=== PATIENT | male | born 1970 | race African-American/Black ===

== ENCOUNTER 2021-02-07 17:50 | Inpatient (IN) | payer OTHER ==
[~2021-02-07] VITALS: Ht 185.4 cm; Wt 165.6 kg
[2021-02-07] MEDS ORDERED: METH2.5T PO (18:04)
[2021-02-07] MEDS ORDERED: CEFTRIAXONE 1 G PREMIX 50 ML IV ONE (18:45)
[2021-02-07] MEDS ORDERED: AZITHROMYCIN 500 MG in DEXT 5% WATER 250 ML IV ONE (18:45)
[2021-02-07 18:50] LABS: HEMATOCRIT. 38.6 % (42.0-52.0); HEMOGLOBIN. 12.7 g/dL (14.0-18.0); MEAN CORPUSCULAR HEMOGLOBIN 26.5 pg (28.0-32.0); MEAN CORPUSCULAR VOLUME 80.8 fL (80.0-94.0); MEAN PLATELET VOLUME 7.9 fl (7.4-10.4); PLATELET 292 x1000/uL (130-400); RED BLOOD CELL COUNT 4.78 mill/uL (4.7-6.1); RED CELL DISTRIBUTION WIDTH 16.1 % (11.6-14.6)
[2021-02-07 18:58] LABS: CHLORIDE 104 mEq/L (98-107)
[2021-02-07] MEDS ORDERED: SODIUM CHLORIDE 0.9% 1,000 ML IV ONE ×2 (19:30→19:45)
[2021-02-07 19:37] LABS: PLATELET ESTIMATE NORMAL
[2021-02-08] MEDS ORDERED: MAGNESIUM/ALUMINUM HYDROXIDE/SIMETHICONE 30ML UDC PO STA
[2021-02-08] MEDS ORDERED: IPRATROPIUM/ALBUTEROL 0.5-3(2.5)MG/3ML NEB HHN PRN (03:45)
[2021-02-08] MEDS: AMLODIPINE 10MG TABLET PO SCH (09:48)
[2021-02-08] MEDS ORDERED: HYDRALAZINE HCL 100MG TABLET PO NR (10:30)
[2021-02-08] MEDS ORDERED: ONDANSETRON HCL 4MG/2ML INJ IV PRN (10:30)
[2021-02-08] MEDS: SODIUM CHLORIDE 0.9% 1,000 ML IV SCH (10:47)
[2021-02-08 11:59] LABS: CLARITY URINE CLOUDY (CLEAR); COLOR URINE DK YELLOW (YELLOW); KETONES URINE NEGATIVE (NEGATIVE); LEUKOCYTE ESTERASE URINE NEGATIVE (NEGATIVE); NITRITE URINE NEGATIVE (NEGATIVE); OCCULT BLOOD URINE TRACE (NEGATIVE); PROTEIN URINE 3+ (NEGATIVE); SPECIFIC GRAVITY URINE 1.021 (1.005-1.030)
[2021-02-08] MEDS: CEFTRIAXONE 1,000 MG in DEXTROSE 5% WATER 50 ML IV SCH (12:37)
[2021-02-08] MEDS: ENOXAPARIN 40MG/0.4ML SYR SUBCUT SCH ×2 (12:37→20:58)
[2021-02-08 15:57] VITALS: BP 180/94
[2021-02-08 16:00] VITALS: BP 180/84
[2021-02-08] MEDS: CLONIDINE 0.1MG TABLET PO PRN (16:59)
[2021-02-08] MEDS: AZITHROMYCIN 500MG in DEXTROSE 5% WATER 250ML IV SCH (18:22)
[2021-02-08] MEDS ORDERED: CEFTRIAXONE 1 G PREMIX 50 ML IV SCH (19:00)
[2021-02-08 20:00] VITALS: BP 156/95
[2021-02-08] MEDS: ACETAMINOPHEN 325MG TABLET PO PRN (20:58)
[2021-02-08] MEDS: HYDRALAZINE HCL 100MG TABLET PO SCH (20:59)
[2021-02-08 21:03] LABS: BG BASE EXCESS -2.8 mmol/L (-2.0-2.0); BG CARBOXYHEMOGLOBIN 0.3 % (0.5-1.5); BG DEOXYHEMOGLOBIN 6.5 % (0.0-5.0); BG FRACTION INSPIRED OXYGEN 30; BG HCO3 ACT 21.1 mmol/L (22.0-26.0); BG METHEMOGLOBIN 0.1 % (0.0-1.5); BG OXYGEN SATURATION 93.5 % (92.0-98.5); BG OXYHEMOGLOBIN 93.1 % (94.0-97.0); BG PCO2 33.7 mmHg (35.0-45.0); BG PH 7.414 (7.350-7.450); BG PO2 65.6 mmHg (75.0-100.0); BG SAMPLE SITE RIGHT RADIAL; BG TOTAL HEMOGLOBIN 12.5 g/dL (12.0-18.0); BG VENT MODE NASAL CANNULA
[2021-02-08] MEDS ORDERED: SODIUM CHLORIDE 10% FOR INH 15ML VIAL NEB INH NR (22:00)
[2021-02-09] VITALS: BP 121/75
[2021-02-09] MEDS: IPRATROPIUM/ALBUTEROL 0.5-3(2.5)MG/3ML NEB HHN SCH ×4 (02:09→20:48)
[2021-02-09 04:00] VITALS: BP 121/64
[2021-02-09] MEDS: SODIUM CHLORIDE 0.9% 1,000 ML IV SCH (05:22)
[2021-02-09 07:10] LABS: BASOPHILS % 0.2 % (0.0-2.0); EOSINOPHILS % 0.4 % (0.0-5.0); HEMATOCRIT. 34.8 % (42.0-52.0); LYMPHOCYTES % 12.1 % (20.0-50.0); MEAN CORPUSCULAR HEMOGLOBIN 26.2 pg (28.0-32.0); MEAN CORPUSCULAR VOLUME 82.6 fL (80.0-94.0); MEAN PLATELET VOLUME 8.3 fl (7.4-10.4); MONOCYTES % 5.3 % (2.0-8.0); PLATELET 346 x1000/uL (130-400); RED BLOOD CELL COUNT 4.22 mill/uL (4.7-6.1); RED CELL DISTRIBUTION WIDTH 15.9 % (11.6-14.6)
[2021-02-09 07:43] LABS: CHLORIDE 105 mEq/L (98-107)
[2021-02-09 08:00] VITALS: BP 150/84
[2021-02-09] MEDS: HYDRALAZINE HCL 100MG TABLET PO SCH ×3 (09:14→21:20)
[2021-02-09] MEDS: ENOXAPARIN 40MG/0.4ML SYR SUBCUT SCH ×2 (09:16→21:20)
[2021-02-09] MEDS: AMLODIPINE 10MG TABLET PO SCH (09:16)
[2021-02-09 12:00] VITALS: BP 152/94
[2021-02-09] MEDS: CEFTRIAXONE 1,000 MG in DEXTROSE 5% WATER 50 ML IV SCH (12:17)
[2021-02-09] MEDS: CLONIDINE 0.1MG TABLET PO PRN (12:31)
[2021-02-09 16:00] VITALS: BP 127/70
[2021-02-09] MEDS: ACETAMINOPHEN 325MG TABLET PO PRN (17:20)
[2021-02-09] MEDS: AZITHROMYCIN 500MG in DEXTROSE 5% WATER 250ML IV SCH (17:58)
[2021-02-09 20:00] VITALS: BP 149/80
[2021-02-10] VITALS: BP 164/100
[2021-02-10] MEDS: CLONIDINE 0.1MG TABLET PO PRN (01:02)
[2021-02-10] MEDS ORDERED: HYDROCODONE/ACETAMINOPHEN 5/325MG TABLET PO PRN (01:15)
[2021-02-10] MEDS: SODIUM CHLORIDE 0.9% 1,000 ML IV SCH ×2 (01:34→21:45)
[2021-02-10] MEDS: IPRATROPIUM/ALBUTEROL 0.5-3(2.5)MG/3ML NEB HHN SCH ×3 (02:41→20:19)
[2021-02-10 04:00] VITALS: BP 136/87
[2021-02-10] MEDS: HYDRALAZINE HCL 100MG TABLET PO SCH ×3 (05:10→21:44)
[2021-02-10 08:00] VITALS: BP 119/76
[2021-02-10] MEDS: ENOXAPARIN 40MG/0.4ML SYR SUBCUT SCH ×2 (09:59→21:44)
[2021-02-10] MEDS: AMLODIPINE 10MG TABLET PO SCH (10:01)
[2021-02-10 12:00] VITALS: BP 144/87
[2021-02-10] MEDS: CEFTRIAXONE 1,000 MG in DEXTROSE 5% WATER 50 ML IV SCH (13:01)
[2021-02-10] MEDS: AZITHROMYCIN 500 MG TABLET PO SCH (14:00)
[2021-02-10] MEDS: METHYLPREDNISOLONE SOD SUCC 125 MG/2 ML VIAL IV SCH ×2 (14:01→21:44)
[2021-02-10 16:00] VITALS: BP 126/79
[2021-02-10 19:57] VITALS: BP 151/86
[2021-02-11 00:01] VITALS: BP 141/94
[2021-02-11] MEDS: IPRATROPIUM/ALBUTEROL 0.5-3(2.5)MG/3ML NEB HHN SCH ×4 (01:48→21:40)
[2021-02-11 04:00] VITALS: BP 171/98
[2021-02-11] MEDS: METHYLPREDNISOLONE SOD SUCC 125 MG/2 ML VIAL IV SCH ×3 (05:38→21:45)
[2021-02-11] MEDS: HYDRALAZINE HCL 100MG TABLET PO SCH ×3 (05:38→21:45)
[2021-02-11 08:15] VITALS: BP 168/94
[2021-02-11] MEDS: AMLODIPINE 10MG TABLET PO SCH (08:42)
[2021-02-11] MEDS: ENOXAPARIN 40MG/0.4ML SYR SUBCUT SCH ×2 (08:43→21:44)
[2021-02-11] MEDS: AZITHROMYCIN 500 MG TABLET PO SCH (11:53)
[2021-02-11] MEDS: CEFTRIAXONE 1,000 MG in DEXTROSE 5% WATER 50 ML IV SCH (11:54)
[2021-02-11 12:25] VITALS: BP 184/98
[2021-02-11] MEDS: LEVOFLOXACIN 500MG TABLET PO SCH (13:57)
[2021-02-11] MEDS: SODIUM CHLORIDE 0.9% 1,000 ML IV SCH (14:01)
[2021-02-11 15:55] VITALS: BP 154/92
[2021-02-11 20:00] VITALS: BP 174/101
[2021-02-11] MEDS: ACETAMINOPHEN 325MG TABLET PO PRN (21:44)
[2021-02-11] MEDS: CLONIDINE 0.1MG TABLET PO PRN (21:45)
[2021-02-12] VITALS: BP 129/75
[2021-02-12 04:00] VITALS: BP 136/80
[2021-02-12] MEDS: METHYLPREDNISOLONE SOD SUCC 125 MG/2 ML VIAL IV SCH ×3 (06:39→21:17)
[2021-02-12] MEDS: HYDRALAZINE HCL 100MG TABLET PO SCH ×3 (06:40→21:17)
[2021-02-12 08:30] VITALS: BP 154/94
[2021-02-12] MEDS: LEVOFLOXACIN 500MG TABLET PO SCH (08:46)
[2021-02-12] MEDS: AMLODIPINE 10MG TABLET PO SCH (08:46)
[2021-02-12] MEDS: ENOXAPARIN 40MG/0.4ML SYR SUBCUT SCH ×2 (08:47→21:18)
[2021-02-12] MEDS: IPRATROPIUM/ALBUTEROL 0.5-3(2.5)MG/3ML NEB HHN SCH ×2 (09:18→21:04)
[2021-02-12 12:24] VITALS: BP 106/53
[2021-02-12 16:27] VITALS: BP 148/94
[2021-02-12 23:50] VITALS: BP 159/89
[2021-02-13] MEDS: METHYLPREDNISOLONE SOD SUCC 125 MG/2 ML VIAL IV SCH ×2 (01:43→08:48)
[2021-02-13] MEDS: IPRATROPIUM/ALBUTEROL 0.5-3(2.5)MG/3ML NEB HHN SCH ×3 (03:00→12:00)
[2021-02-13 03:47] VITALS: BP 162/97
[2021-02-13] MEDS: HYDRALAZINE HCL 100MG TABLET PO SCH ×2 (05:50→14:08)
[2021-02-13 08:00] VITALS: BP 169/93
[2021-02-13] MEDS: AMLODIPINE 10MG TABLET PO SCH (08:48)
[2021-02-13] MEDS: ENOXAPARIN 40MG/0.4ML SYR SUBCUT SCH (08:49)
[2021-02-13 12:00] VITALS: BP 159/94
[2021-02-13] MEDS: LEVOFLOXACIN 500MG TABLET PO SCH (12:01)
[2021-02-13 15:22] VITALS: BP 141/74
[2021-02-13 16:00] VITALS: BP 141/74
[2021-02-13] MEDS ORDERED: METHYLPREDNISOLONE SOD SUCC 125 MG/2 ML VIAL IV SCH (16:00)
== END 2021-02-13 16:38 | disposition home or self-care (01) | DRG 871 ==
LOC: ER 17:50 → MICUSO 20:58 → EDBEDREQTM 21:01 → EDBEDREQ 21:01 → 6WST 02-08 14:09
PROVIDERS: ADMIT Internal Medicine; ATTEND Internal Medicine
DX: A41.9 Sepsis, unspecified organism (principal); J96.01 Acute respiratory failure with hypoxia; E43 Unspecified severe protein-calorie malnutrition; J18.9 Pneumonia, unspecified organism; R65.21 Severe sepsis with septic shock; N17.0 Acute kidney failure with tubular necrosis; Z68.42 Body mass index [BMI] 45.0-49.9, adult; M19.90 Unspecified osteoarthritis, unspecified site; D64.9 Anemia, unspecified; E66.9 Obesity, unspecified; I11.9 Hypertensive heart disease without heart failure; M06.9 Rheumatoid arthritis, unspecified; Z20.822 Contact with and (suspected) exposure to COVID-19; Z79.899 Other long term (current) drug therapy
CPT/HCPCS: 36415; 36600; 71045; 71250; 80048; 80053; 81003; 82375; 82805; 83605; 83880; 84484; 85025; 87070; 87426; 93005; 94618; 94640; 99291; C1893; J0456; J0696; J1650; J2930; J7030; J7060; J7131

== ENCOUNTER 2021-05-27 18:04 | Emergency (ER) | payer OTHER ==
[~2021-05-27] VITALS: Ht 188 cm; Wt 170.0 kg
[~2021-05-27 18:04] MED LIST: METH2.5T PO
[2021-05-27 19:18] LABS: BASOPHILS % 0.8 % (0.0-2.0); EOSINOPHILS % 1.1 % (0.0-5.0); HEMATOCRIT. 43.2 % (42.0-52.0); HEMOGLOBIN. 13.6 g/dL (14.0-18.0); LYMPHOCYTES % 18.3 % (20.0-50.0); MEAN CORPUSCULAR VOLUME 88.6 fL (80.0-94.0); MONOCYTES % 13.5 % (2.0-8.0); NEUTROPHILS % 66.3 % (40.0-76.0); PLATELET 295 x1000/uL (130-400); RED BLOOD CELL COUNT 4.87 mill/uL (4.7-6.1); RED CELL DISTRIBUTION WIDTH 16.2 % (11.6-14.6)
[2021-05-27 19:23] LABS: CHLORIDE 111 mEq/L (98-107)
[2021-05-27 21:48] LABS: CLARITY URINE CLEAR (CLEAR); COLOR URINE YELLOW (YELLOW); KETONES URINE TRACE (NEGATIVE); LEUKOCYTE ESTERASE URINE NEGATIVE (NEGATIVE); NITRITE URINE NEGATIVE (NEGATIVE); OCCULT BLOOD URINE NEGATIVE (NEGATIVE); PH URINE 6.5 (4.5-8.0); PROTEIN URINE 3+ (NEGATIVE); SPECIFIC GRAVITY URINE 1.024 (1.005-1.030)
[2021-05-27 23:40] VITALS: BP 174/94
== END 2021-05-27 23:45 | disposition home or self-care (01) ==
LOC: ER 18:04
DX: R00.2 Palpitations (principal); M19.90 Unspecified osteoarthritis, unspecified site; E66.9 Obesity, unspecified; Z68.42 Body mass index [BMI] 45.0-49.9, adult
CPT/HCPCS: 36415; 71045; 80053; 81003; 83880; 84484; 85025; 93005; 99285